=== PATIENT | male | born 1965 | race Caucasian/White ===

== ENCOUNTER 2021-01-01 15:19 | Inpatient (IN) | payer MEDICAID, OTHER ==
[~2021-01-01] VITALS: Ht 182.9 cm; Wt 105.0 kg
[~2021-01-01 15:19] MED LIST: HYDR12.55 PO; PRED10TA PO; VALS160T2 PO
[2021-01-01 15:59] LABS: CLARITY,URINE CLOUDY (Clear); COLOR,URINE YELLOW (Yellow); GLUCOSE, URINE NEGATIVE (Neg); KETONES,URINE TRACE mg/dl (Neg); LEUKOCYTE ESTERASE ,URINE TRACE (Neg); NITRITES, URINE NEGATIVE (Neg); OCCULT BLOOD,URINE MODERATE (Neg); PROTEIN,URINE 100 mg/dl (Neg); UROBILINOGEN,URINE 0.2 E.U/dL (0.2-1.0)
[2021-01-01 16:01] LABS: UA COLLECTION TYPE CLN CATCH MIDSTREAM
[2021-01-01 16:16] LABS: MUCUS STRANDS FEW /LPF (Neg); TRANSITIONAL EPI CELLS,URINE MODERATE /HPF
[2021-01-01 16:17] LABS: BACTERIA,URINE 2+ /HPF (Neg); SQUAMOUS EPITHELIAL CELL,UR FEW /LPF (FEW)
[2021-01-01] MEDS ORDERED: ketorolac tromethamine 15mg/ml inj. IV ONE (17:45)
[2021-01-01] MEDS ORDERED: normal saline 1000ML IV soln IVB ONE (17:45)
[2021-01-01] MEDS ORDERED: proCHLORperazine 10 MG/2 ml inj IV ONE (17:55)
[2021-01-01 18:48] LABS: ALANINE AMINOTRANSFERASE 38 U/L (12-78); ALBUMIN 3.2 G/DL (3.4-5.0); ALBUMIN/GLOBULIN RATIO 0.7 (1.1-1.5); ALKALINE PHOSPHATASE 76 IU/L (46-116); ANION GAP 12 (8-16); ASPARTATE AMINO TRANSFERASE 15 U/L (10-37); BILIRUBIN,TOTAL 0.9 MG/DL (0.1-1.0); BLOOD UREA NITROGEN 42 MG/DL (7-18); BUN/CREATININE RATIO 15.4 (5.4-32.0); CALCIUM 9.5 MG/DL (8.5-10.1); CHLORIDE 92 MMOL/L (99-107); CREATININE 2.73 MG/DL (0.60-1.10); GLUCOSE 143 MG/DL (70-104); POTASSIUM 3.4 MMOL/L (3.5-5.1); SODIUM 132 MMOL/L (135-145); TOTAL CARBON DIOXIDE 28.1 MMOL/L (24-32); TOTAL PROTEIN 8.1 G/DL (6.4-8.2); eGFR 24 ML/MIN
[2021-01-01 19:44] LABS: BASOPHILS % (AUTO) 0.1 % (0-1); EOSINOPHILS # (AUTO) 0.1 X10'3 (0-0.9); EOSINOPHILS % (AUTO) 0.5 % (0-6); HEMOGLOBIN 13.2 g/dl (14.0-17.9); LYMPHOCYTES # (AUTO) 1.1 X10'3 (1.1-4.8); LYMPHOCYTES % (AUTO) 7.8 % (21-51); MEAN CORPUSCULAR HEMOGLOBIN 28.8 PG (27.0-31.0); MEAN CORPUSCULAR HGB CONC 33.8 g/dL (33.0-36.5); MEAN CORPUSCULAR VOLUME 85.1 FL (78-98); MEAN PLATELET VOLUME 8.9 FL (7.4-10.4); MONOCYTES # (AUTO) 1.3 X10'3 (0-0.9); MONOCYTES % (AUTO) 9.4 % (2-12); NEUTROPHILS # (AUTO) 11.2 X10'3 (1.8-7.7); NEUTROPHILS % (AUTO) 82.2 % (42-75); PLATELET COUNT 199 X10'3 (140-440); RED BLOOD COUNT 4.58 X10'6 (4.70-6.10); RED CELL DISTRIBUTION WIDTH 13.2 % (11.5-14.5); WHITE BLOOD COUNT 13.6 X10'3 (4.5-11.0)
[2021-01-01] MEDS ORDERED: OLME-11 PO (20:01)
[2021-01-01] MEDS ORDERED: TADA20TA43 PO (20:01)
[2021-01-01] MEDS ORDERED: PANT40TA54 PO (20:01)
[2021-01-01] MEDS ORDERED: ROSU20TA31 PO (20:01)
[2021-01-01] MEDS ORDERED: AMLO5TAB16 PO (20:01)
[2021-01-01] MEDS ORDERED: HYDR12.55 PO (20:03)
[2021-01-01] MEDS ORDERED: diatr meglu/diatrizoate 30ml oral sol.-(3 dose) bottle PO SCH (21:00)
--- NOTE | 2021-01-01 21:49 | NUR ---
MD Torres at bedside. instructed to have patient become NPO at midnight.
[2021-01-01] MEDS: diatr meglu/diatrizoate 30ml oral sol.-(3 dose) bottle PO SCH (22:30)
[2021-01-01] MEDS ORDERED: morphine 2 MG/ML inj. syringe IV PRN (23:30)
[2021-01-01] MEDS ORDERED: mag hydrox/Alum hydrox/simeth 30ml oral suspension PO PRN (23:30)
[2021-01-01] MEDS ORDERED: magnesium hydroxide 30ml (MOM) UD suspension PO PRN (23:30)
[2021-01-01] MEDS ORDERED: potassium Cl 20 mEq SR tablet PO PRN ×2 (23:30)
[2021-01-01] MEDS ORDERED: potassium Cl 40MEQ/1/2NS 520ml 520 ML IV PRN ×2 (23:30)
[2021-01-02] VITALS (15 sets, daily range): BP systolic 117–177; BP diastolic 79–104
[2021-01-02] MEDS: CefTRIAXone/D5W-Rocephin 1gm 50 ML IV SCH (01:12)
[2021-01-02] MEDS: normal saline 1000ml 1,000 ML IV SCH ×3 (01:12→22:49)
--- NOTE | 2021-01-02 01:19 | NUR ---
Pt asleep with observed chest rise and fall.
--- NOTE | 2021-01-02 02:40 | NUR ---
Called to get report on patient; ER teletypesetter stated that primary RN is at lunch and will call back.
[2021-01-02 02:46] LABS: BASOPHILS % (AUTO) 0.3 % (0-1); EOSINOPHILS # (AUTO) 0.3 X10'3 (0-0.9); EOSINOPHILS % (AUTO) 2.2 % (0-6); HEMATOCRIT 37.9 % (42.0-52.0); HEMOGLOBIN 12.9 g/dl (14.0-17.9); LYMPHOCYTES # (AUTO) 1.3 X10'3 (1.1-4.8); LYMPHOCYTES % (AUTO) 10.7 % (21-51); MEAN CORPUSCULAR VOLUME 85.4 FL (78-98); MEAN PLATELET VOLUME 8.3 FL (7.4-10.4); MONOCYTES # (AUTO) 1.1 X10'3 (0-0.9); MONOCYTES % (AUTO) 9.5 % (2-12); NEUTROPHILS # (AUTO) 9.1 X10'3 (1.8-7.7); NEUTROPHILS % (AUTO) 77.3 % (42-75); PLATELET COUNT 222 X10'3 (140-440); RED BLOOD COUNT 4.44 X10'6 (4.70-6.10); RED CELL DISTRIBUTION WIDTH 13.1 % (11.5-14.5); WHITE BLOOD COUNT 11.8 X10'3 (4.5-11.0)
[2021-01-02 03:02] LABS: ALANINE AMINOTRANSFERASE 34 U/L (12-78); ALBUMIN 2.6 G/DL (3.4-5.0); ALBUMIN/GLOBULIN RATIO 0.6 (1.1-1.5); ALKALINE PHOSPHATASE 71 IU/L (46-116); ANION GAP 10 (8-16); ASPARTATE AMINO TRANSFERASE 14 U/L (10-37); BILIRUBIN,TOTAL 0.6 MG/DL (0.1-1.0); BLOOD UREA NITROGEN 41 MG/DL (7-18); BUN/CREATININE RATIO 19.3 (5.4-32.0); CALCIUM 8.9 MG/DL (8.5-10.1); CHLORIDE 96 MMOL/L (99-107); CREATININE 2.12 MG/DL (0.60-1.10); GLUCOSE 152 MG/DL (70-104); POTASSIUM 3.3 MMOL/L (3.5-5.1); SODIUM 135 MMOL/L (135-145); TOTAL CARBON DIOXIDE 28.7 MMOL/L (24-32); eGFR 32 ML/MIN
--- NOTE | 2021-01-02 03:18 | NUR ---
Received report from BERNADETTE Nieto. Awaiting patient arrival to the unit.
[2021-01-02] MEDS: ondansetron/PF 4mg/2ml inj IV PRN (03:47)
[2021-01-02] MEDS: morphine 2 MG/ML inj. syringe IV PRN ×2 (03:48→09:12)
--- NOTE | 2021-01-02 03:55 | NUR ---
Patient came up to the floor via wheelchair accompanied by PCT. Placed in 344A. Patient awake and alert on room air, in no apparent distress. Call light given, items of frequent use within reach. Will continue to monitor.
--- NOTE | 2021-01-02 04:15 | NUR ---
Patient stated "I was raised [place], but I'm ok to get blood if that's the last and only option"
--- NOTE | 2021-01-02 06:24 | NUR ---
Patient in room [facility]. I have received report from Dinah FLEMING and had the opportunity to ask questions and assume patient care.
--- NOTE | 2021-01-02 06:25 | NUR ---
Problems reprioritized. Patient report given, questions answered & plan of care reviewed with BERNADETTE Persaud.
[2021-01-02] MEDS: diatr meglu/diatrizoate 30ml oral sol.-(3 dose) bottle PO SCH ×2 (07:25→09:07)
[2021-01-02] MEDS: atorvastatin 10mg tablet PO SCH (08:00)
[2021-01-02] MEDS: K and/or MAG REPLACEMENT MC SCH ×2 (08:00→22:50)
[2021-01-02] MEDS: amLODIPine 5mg tablet PO SCH (08:00)
[2021-01-02] MEDS: pantoprazole 40mg Tablet.DR PO SCH (08:00)
--- NOTE | 2021-01-02 08:40 | NUR ---
OR phoned that pt will be going to surgery after 1600, and pt is to be NPO after breakfast. Addendum: 01/02/21 at 0848 by Uzma Cole RN BERNADETTE Persaud notified.
[2021-01-02] MEDS ORDERED: morphine 2 MG/ML inj. syringe IV ONE (12:30)
[2021-01-02] MEDS ORDERED: famotidine/PF 10 mg/ml inj IV ONE (14:00)
--- NOTE | 2021-01-02 14:20 | NUR ---
Paged Dr. Chao PAGER ID: [phone] MESSAGE: Surgical Cori FLEMING ext [phone]. RE: Jona Maradiaga. 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 I do not see any documentation that says he has history of inferior infarct. I also called OR charge nurse Brian to let him know about the abnormal EKG to relay to anesthesiologist
--- NOTE | 2021-01-02 14:23 | NUR ---
I called pharmacy to request IV KCL for K of 3.3 Addendum: 01/02/21 at 1424 by Cori Hawley RN Patient currently on NPO
[2021-01-02] MEDS ORDERED: iohexol 300 MG/1 ML 50ml polymer ONE (18:33)
--- NOTE | 2021-01-02 18:39 | NUR ---
Problems reprioritized. Patient report given, questions answered & plan of care reviewed with Pat RN.
[2021-01-02] MEDS ORDERED: sevoflurane 250ml liquid IH ONE (18:40)
[2021-01-02] MEDS ORDERED: fentaNYL/PF 50MCG/1 ML 2ML syringe ONE ×2 (18:47→19:32)
[2021-01-02] MEDS ORDERED: midazolam 1 mg/ML 2ml injection ONE (18:47)
[2021-01-02] MEDS ORDERED: morphine 4 MG/ML inj SYRINge IV PRN (19:20)
[2021-01-02] MEDS ORDERED: meperidine/PF 25mg/ml syringe IV PRN ×3 (19:20)
[2021-01-02] MEDS ORDERED: ringers solution, lacted 1,000 ML IV SCH (19:20)
[2021-01-02] MEDS ORDERED: morphine 2 MG/ML inj. syringe IV PRN (19:20)
[2021-01-02] MEDS ORDERED: proCHLORperazine 10 MG/2 ml inj IV PRN (19:20)
[2021-01-02] MEDS ORDERED: ondansetron/PF 4mg/2ml inj IV PRN (19:20)
[2021-01-02] MEDS ORDERED: LIDOcaine 1%/PF 5ML 10 MG/ML VIAL ONE (19:31)
[2021-01-02] MEDS ORDERED: propofol inj 20 ML IV ONE (19:31)
--- NOTE | 2021-01-02 20:05 | NUR ---
RECEIVED PT FROM OR VIA BED, DR SAWANT FROM ANESTHESIA ACCOMPANIED-REPORT GIVEN, VSS, PT DENIES PAIN, AWAKE, PIV 20G TO RIGHT HAND-LR RUNNING AT 125ML/HR
[2021-01-02] MEDS ORDERED: PEG 3350/Na sulf,bicarb,Cl/KCl oral sol 4 liter bottle PO ONE (20:40)
--- NOTE | 2021-01-02 21:05 | NUR ---
PT UP TO SIDE OF BED OFTEN TO ATTEMPT TO VOID-SMALL AMOUNTS OF RED URINE-OUT, ONE CLOT NOTED WELL, PT DENIES PAIN, VSS-BP ELEVATED, PT HAS NOT HAD BP MEDS FOR LAST FEW DAYS, PIV 20G TO RIGHT HAND-LR STILL RUNNING, PLAN TO BE ON CLEAR LIQUID DIET AND GO LYTELY FOR PLANNED COLOSCOPY IN AM-COLECTOMY ON HOLD, REPORT CALLED TO BREANN ON SURGICAL-ALL QUESTIONS ANSWERED, PT RTN TO ROOM 344A, PRIMARY RN IN ROOM TO RECEIVE-ALL QUESTIONS ANSWERED, BED LOW AND LOCKED, CALL LIGHT IN REACH.
--- NOTE | 2021-01-02 21:15 | NUR ---
s/p cysto with stent placed Addendum: 01/03/21 at 0316 by Kacie Conway RN Amended: Links added.
[2021-01-03] VITALS (12 sets, daily range): BP systolic 121–189; BP diastolic 67–101
[2021-01-03] MEDS: morphine 2 MG/ML inj. syringe IV PRN ×3 (00:05→19:24)
[2021-01-03] MEDS: CefTRIAXone/D5W-Rocephin 1gm 50 ML IV SCH (07:00)
[2021-01-03 07:04] LABS: ALANINE AMINOTRANSFERASE 50 U/L (12-78); ALBUMIN 2.7 G/DL (3.4-5.0); ALBUMIN/GLOBULIN RATIO 0.6 (1.1-1.5); ALKALINE PHOSPHATASE 107 IU/L (46-116); ANION GAP 12 (8-16); ASPARTATE AMINO TRANSFERASE 36 U/L (10-37); BILIRUBIN,TOTAL 0.5 MG/DL (0.1-1.0); BLOOD UREA NITROGEN 26 MG/DL (7-18); BUN/CREATININE RATIO 18.1 (5.4-32.0); CALCIUM 8.9 MG/DL (8.5-10.1); CHLORIDE 100 MMOL/L (99-107); CREATININE 1.44 MG/DL (0.60-1.10); GLUCOSE 155 MG/DL (70-104); POTASSIUM 4.1 MMOL/L (3.5-5.1); SODIUM 137 MMOL/L (135-145); TOTAL CARBON DIOXIDE 24.9 MMOL/L (24-32); TOTAL PROTEIN 7.6 G/DL (6.4-8.2); eGFR 51 ML/MIN
[2021-01-03] MEDS: pantoprazole 40mg Tablet.DR PO SCH (08:00)
[2021-01-03] MEDS: K and/or MAG REPLACEMENT MC SCH ×2 (08:00→19:39)
[2021-01-03] MEDS: atorvastatin 10mg tablet PO SCH (08:00)
[2021-01-03] MEDS: amLODIPine 5mg tablet PO SCH (08:00)
[2021-01-03] MEDS: hydrALAZINE 20mg/ml inj. IV PRN ×2 (08:09→23:45)
[2021-01-03] MEDS: normal saline 1000ml 1,000 ML IV SCH ×2 (08:28→17:30)
--- NOTE | 2021-01-03 08:55 | NUR ---
linked med note: Rocephin IV due @ 01/03 @ 0100 and Morphine reassessment due @ 01/03 @ 0105 was non administered because this was not my shift.
[2021-01-03 09:50] LABS: BASOPHILS % (AUTO) 0.1 % (0-1); EOSINOPHILS % (AUTO) 0.1 % (0-6)
[2021-01-03 09:54] LABS: LYMPHOCYTES # (AUTO) 1.1 X10'3 (1.1-4.8); LYMPHOCYTES % (AUTO) 6.5 % (21-51); MONOCYTES # (AUTO) 1.2 X10'3 (0-0.9); NEUTROPHILS # (AUTO) 14.8 X10'3 (1.8-7.7); NEUTROPHILS % (AUTO) 86.3 % (42-75)
[2021-01-03 10:07] LABS: HEMOGLOBIN 12.2 g/dl (14.0-17.9); RED BLOOD COUNT 4.28 X10'6 (4.70-6.10); WHITE BLOOD COUNT 16.2 X10'3 (4.5-11.0)
[2021-01-03 10:08] LABS: HEMATOCRIT 36.5 % (42.0-52.0); MEAN CORPUSCULAR HEMOGLOBIN 28.6 PG (27.0-31.0); MEAN CORPUSCULAR HGB CONC 33.6 g/dL (33.0-36.5); MEAN CORPUSCULAR VOLUME 85.2 FL (78-98); MEAN PLATELET VOLUME 7.8 FL (7.4-10.4); PLATELET COUNT 264 X10'3 (140-440); RED CELL DISTRIBUTION WIDTH 13.7 % (11.5-14.5)
--- NOTE | 2021-01-03 10:22 | NUR ---
Page sent to GI lab... Agnes Maradiaga 352A: estimated time for this patients procedure? thanks!
--- NOTE | 2021-01-03 13:17 | NUR ---
taken to GI lab.
[2021-01-03] MEDS ORDERED: fentaNYL/PF 50MCG/1 ML 2ML syringe ONE (13:24)
[2021-01-03] MEDS ORDERED: MIDAZolam 1 MG/ML 5ML VIAL ONE (13:25)
[2021-01-03] MEDS ORDERED: LIDOcaine Viscous 15ml cup ONE (13:49)
[2021-01-03] MEDS ORDERED: BUPIVACAINE liposomal/PF 13.3 MG/ML vial IM ONE ×2 (14:40)
[2021-01-03] MEDS ORDERED: BUPIVAcaine/PF 2.5 mg/ml (0.25%) 30ml vial IJ ONE ×2 (14:45)
--- NOTE | 2021-01-03 18:00 | NUR ---
Problems reprioritized. Patient report given, questions answered & plan of care reviewed with BERNADETTE Birch.
--- NOTE | 2021-01-03 18:05 | NUR ---
Patient in room [facility] 352. I have received report from Roberta FLEMING and had the opportunity to ask questions and assume patient care.
[2021-01-03] MEDS: lactobacillus rhamnosus 10,000 MMU CELLS/CAPSULE PO SCH (19:24)
[2021-01-03] MEDS: diatr meglu/diatrizoate 30ml oral sol.-(3 dose) bottle PO SCH (21:09)
[2021-01-04] MEDS: normal saline 1000ml 1,000 ML IV SCH ×3 (00:42→21:30)
[2021-01-04 00:45] VITALS: BP 154/94
[2021-01-04] MEDS: CefTRIAXone/D5W-Rocephin 1gm 50 ML IV SCH (00:47)
--- NOTE | 2021-01-04 06:08 | NUR ---
Problems reprioritized. Patient report given, questions answered & plan of care reviewed with Roberta FLEMING.
[2021-01-04 06:44] LABS: ALANINE AMINOTRANSFERASE 100 U/L (12-78); ALBUMIN 2.3 G/DL (3.4-5.0); ALBUMIN/GLOBULIN RATIO 0.6 (1.1-1.5); ALKALINE PHOSPHATASE 113 IU/L (46-116); ANION GAP 9 (8-16); ASPARTATE AMINO TRANSFERASE 87 U/L (10-37); BILIRUBIN,TOTAL 0.2 MG/DL (0.1-1.0); BLOOD UREA NITROGEN 32 MG/DL (7-18); BUN/CREATININE RATIO 26.2 (5.4-32.0); CALCIUM 8.6 MG/DL (8.5-10.1); CHLORIDE 106 MMOL/L (99-107); CREATININE 1.22 MG/DL (0.60-1.10); GLUCOSE 126 MG/DL (70-104); SODIUM 141 MMOL/L (135-145); TOTAL CARBON DIOXIDE 26.2 MMOL/L (24-32); TOTAL PROTEIN 6.4 G/DL (6.4-8.2); eGFR 61 ML/MIN
[2021-01-04 07:20] VITALS: BP 169/94
[2021-01-04] MEDS: diatr meglu/diatrizoate 30ml oral sol.-(3 dose) bottle PO SCH ×2 (07:25→19:05)
[2021-01-04] MEDS: morphine 2 MG/ML inj. syringe IV PRN ×2 (07:26→12:26)
[2021-01-04] MEDS: K and/or MAG REPLACEMENT MC SCH ×2 (07:35→20:00)
[2021-01-04] MEDS: lactobacillus rhamnosus 10,000 MMU CELLS/CAPSULE PO SCH ×2 (08:00→19:21)
[2021-01-04] MEDS: atorvastatin 10mg tablet PO SCH (08:00)
[2021-01-04] MEDS: pantoprazole 40mg Tablet.DR PO SCH (08:00)
[2021-01-04] MEDS: amLODIPine 5mg tablet PO SCH (08:00)
[2021-01-04 08:18] LABS: BASOPHILS % (AUTO) 0.1 % (0-1); EOSINOPHILS # (AUTO) 0.1 X10'3 (0-0.9); MEAN CORPUSCULAR HGB CONC 32.9 g/dL (33.0-36.5); MONOCYTES # (AUTO) 1.7 X10'3 (0-0.9)
[2021-01-04 08:19] LABS: EOSINOPHILS % (AUTO) 0.5 % (0-6); HEMATOCRIT 39.5 % (42.0-52.0); LYMPHOCYTES % (AUTO) 11.8 % (21-51); MEAN CORPUSCULAR HEMOGLOBIN 28.4 PG (27.0-31.0); MEAN CORPUSCULAR VOLUME 86.3 FL (78-98); MEAN PLATELET VOLUME 8.3 FL (7.4-10.4); MONOCYTES % (AUTO) 10.3 % (2-12); NEUTROPHILS # (AUTO) 12.9 X10'3 (1.8-7.7); NEUTROPHILS % (AUTO) 77.3 % (42-75); RED BLOOD COUNT 4.58 X10'6 (4.70-6.10)
[2021-01-04 08:31] LABS: PLATELET COUNT 271 X10'3 (140-440); WHITE BLOOD COUNT 17.3 X10'3 (4.5-11.0)
[2021-01-04] MEDS ORDERED: iohexol 300mg/ml 100ml inj. ONE (10:24)
[2021-01-04 11:00] VITALS: BP 167/95
[2021-01-04] MEDS ORDERED: cloNIDine 0.1 mg tablet PO PRN (11:00)
[2021-01-04] MEDS: lisinopril 10 MG tablet PO SCH (11:00)
--- NOTE | 2021-01-04 12:00 | NUR ---
[facility] was unable to get a hold of . I attempted to call him again, no answer. voice message left.
--- NOTE | 2021-01-04 12:45 | NUR ---
PAGER ID: [phone] MESSAGE: Agnes Maradiaga: patient needs results branden. he is trying to eat and drink fluids. starting to get very agitated. thanks, georgina
--- NOTE | 2021-01-04 16:04 | NUR ---
PAGER ID: [phone] MESSAGE: Agnes Maradiaga 352: patient states morphine is not working. would you like to try dilaudid? thanks, georgina
[2021-01-04] MEDS ORDERED: HYDROmorphone inj. 0.5 MG/0.5 ML DISP.SYRIN IV ONE (16:10)
[2021-01-04] MEDS: ondansetron/PF 4mg/2ml inj IV PRN (17:28)
[2021-01-04 18:00] VITALS: BP 175/97
--- NOTE | 2021-01-04 18:10 | NUR ---
Patient in room [facility] 352. I have received report from Roberta FLEMING and had the opportunity to ask questions and assume patient care.
--- NOTE | 2021-01-04 18:11 | NUR ---
Problems reprioritized. Patient report given, questions answered & plan of care reviewed with BERNADETTE Birch.
[2021-01-04] MEDS: metoprolol tartrate 25mg tablet PO SCH (19:22)
[2021-01-04] MEDS: metroNIDAZOLE-Flagyl 500mg/NS 100 ML IV SCH (23:25)
[2021-01-04 23:49] VITALS: BP 148/83
[2021-01-05] VITALS (8 sets, daily range): BP systolic 118–159; BP diastolic 72–88
[2021-01-05] MEDS: CefTRIAXone/D5W-Rocephin 1gm 50 ML IV SCH (01:13)
--- NOTE | 2021-01-05 06:10 | NUR ---
Problems reprioritized. Patient report given, questions answered & plan of care reviewed with Joi FLEMING.
[2021-01-05 06:35] LABS: HEMATOCRIT 36.6 % (42.0-52.0); HEMOGLOBIN 11.9 g/dl (14.0-17.9); MEAN CORPUSCULAR HEMOGLOBIN 27.9 PG (27.0-31.0); MEAN CORPUSCULAR HGB CONC 32.4 g/dL (33.0-36.5); MEAN CORPUSCULAR VOLUME 86.2 FL (78-98); RED BLOOD COUNT 4.25 X10'6 (4.70-6.10); RED CELL DISTRIBUTION WIDTH 13.9 % (11.5-14.5)
[2021-01-05 06:47] LABS: PLATELET COUNT 277 X10'3 (140-440); WHITE BLOOD COUNT 19.3 X10'3 (4.5-11.0)
[2021-01-05 07:16] LABS: PLATELET ESTIMATE NORMAL; TOTAL CELLS COUNTED 100
[2021-01-05 07:19] LABS: ALANINE AMINOTRANSFERASE 96 U/L (12-78); ALBUMIN 2.3 G/DL (3.4-5.0); ALBUMIN/GLOBULIN RATIO 0.6 (1.1-1.5); ALKALINE PHOSPHATASE 102 IU/L (46-116); ANION GAP 13 (8-16); ASPARTATE AMINO TRANSFERASE 48 U/L (10-37); BILIRUBIN,TOTAL 0.4 MG/DL (0.1-1.0); BLOOD UREA NITROGEN 20 MG/DL (7-18); BUN/CREATININE RATIO 17.5 (5.4-32.0); CALCIUM 8.2 MG/DL (8.5-10.1); CHLORIDE 103 MMOL/L (99-107); CREATININE 1.14 MG/DL (0.60-1.10); GLUCOSE 107 MG/DL (70-104); SODIUM 139 MMOL/L (135-145); TOTAL PROTEIN 6.1 G/DL (6.4-8.2); eGFR 66 ML/MIN
[2021-01-05] MEDS: normal saline 1000ml 1,000 ML IV SCH ×3 (07:30→18:44)
[2021-01-05] MEDS: K and/or MAG REPLACEMENT MC SCH ×2 (08:00→20:00)
[2021-01-05] MEDS ORDERED: acetaminophen 325mg tablet PO PRN (08:40)
[2021-01-05] MEDS: lactobacillus rhamnosus 10,000 MMU CELLS/CAPSULE PO SCH ×2 (08:56→20:02)
[2021-01-05] MEDS: metroNIDAZOLE-Flagyl 500mg/NS 100 ML IV SCH ×2 (08:56→15:58)
[2021-01-05] MEDS: pantoprazole 40mg Tablet.DR PO SCH (08:56)
[2021-01-05] MEDS: metoprolol tartrate 25mg tablet PO SCH ×2 (08:57→20:01)
[2021-01-05] MEDS: lisinopril 10 MG tablet PO SCH (08:57)
[2021-01-05] MEDS: amLODIPine 5mg tablet PO SCH (08:57)
[2021-01-05] MEDS: atorvastatin 10mg tablet PO SCH (08:57)
[2021-01-05] MEDS: acetaminophen 325mg tablet PO PRN ×2 (08:59→16:03)
--- NOTE | 2021-01-05 10:36 | NUR ---
Initial: Pt admit for cecum mass with a kidney stone and associated right hydronephrosis. Pt s/p cystoscopy as well as biopsy of the right ureter with stone extraction 01/02. Pt s/p colonoscopy which showed no signs of any mass per MD note. 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 Pt pending to go to OR today per MD note. Pt with active regular diet though has been documented as NPO d/t procedures. Pt with c/o hunger and wants to eat per MD note. LBM 01/05. Will continue to follow closely and make recommendations as appropriate pending diet advancement. Recommendations: 1) Advance to regular diet as medically indicated 2) Bowel care per rx 3) Weekly scaled weights Addendum: 01/05/21 at [address] Amended: Links added.
[2021-01-05] MEDS ORDERED: fentaNYL/PF 50MCG/1 ML 2ML syringe ONE (12:05)
[2021-01-05] MEDS ORDERED: midazolam 1 mg/ML 2ml injection ONE (12:05)
[2021-01-05] MEDS: morphine 2 MG/ML inj. syringe IV PRN ×2 (16:48→20:49)
--- NOTE | 2021-01-05 17:37 | NUR ---
PAGER ID: [phone] MESSAGE: Jona Maradiaga 352 Pt c/o having multiple liquid stools today. He is taking a probiotic but had drank golytely a couple days ago which is when he stated it started. Can pt. have an Imodium order? Joi [id number]
--- NOTE | 2021-01-05 18:31 | NUR ---
Problems reprioritized. Patient report given, questions answered & plan of care reviewed with PAT RN.
--- NOTE | 2021-01-05 19:30 | NUR ---
pt reports he's been going in the toilet earlier today & not straining his urine; pt states it has been easiler to urinate since the stent was placed Addendum: 01/05/21 at 4482 by Kacie Conway RN Amended: Links added.
[2021-01-05] MEDS: piperacillin/tazo 4.5gm/100ml 100 ML IV SCH (19:55)
[2021-01-06 00:45] VITALS: BP 153/80
[2021-01-06] MEDS: morphine 2 MG/ML inj. syringe IV PRN ×6 (00:50→20:53)
[2021-01-06] MEDS: normal saline 1000ml 1,000 ML IV SCH ×2 (05:00→17:16)
[2021-01-06 06:02] LABS: ALANINE AMINOTRANSFERASE 68 U/L (12-78); ALBUMIN 2.1 G/DL (3.4-5.0); ALBUMIN/GLOBULIN RATIO 0.6 (1.1-1.5); ALKALINE PHOSPHATASE 111 IU/L (46-116); ANION GAP 7 (8-16); ASPARTATE AMINO TRANSFERASE 23 U/L (10-37); BILIRUBIN,TOTAL 0.4 MG/DL (0.1-1.0); BLOOD UREA NITROGEN 15 MG/DL (7-18); CHLORIDE 105 MMOL/L (99-107); CREATININE 1.07 MG/DL (0.60-1.10); GLUCOSE 100 MG/DL (70-104); POTASSIUM 3.8 MMOL/L (3.5-5.1); SODIUM 138 MMOL/L (135-145); TOTAL CARBON DIOXIDE 25.8 MMOL/L (24-32); TOTAL PROTEIN 5.9 G/DL (6.4-8.2); eGFR 71 ML/MIN
[2021-01-06 07:00] VITALS: BP 155/99
[2021-01-06 07:55] LABS: BASOPHILS # (AUTO) 0.1 X10'3 (0-0.2); BASOPHILS % (AUTO) 0.3 % (0-1); EOSINOPHILS # (AUTO) 0.4 X10'3 (0-0.9); EOSINOPHILS % (AUTO) 1.8 % (0-6); LYMPHOCYTES # (AUTO) 3.2 X10'3 (1.1-4.8); LYMPHOCYTES % (AUTO) 13.6 % (21-51); MEAN CORPUSCULAR HEMOGLOBIN 28.5 PG (27.0-31.0); MEAN CORPUSCULAR VOLUME 86.2 FL (78-98); MONOCYTES # (AUTO) 2.5 X10'3 (0-0.9); MONOCYTES % (AUTO) 10.8 % (2-12); NEUTROPHILS # (AUTO) 17.3 X10'3 (1.8-7.7); NEUTROPHILS % (AUTO) 73.5 % (42-75)
[2021-01-06 07:57] LABS: HEMATOCRIT 38.2 % (42.0-52.0); HEMOGLOBIN 12.9 g/dl (14.0-17.9); RED BLOOD COUNT 4.48 X10'6 (4.70-6.10); WHITE BLOOD COUNT 20.2 X10'3 (4.5-11.0)
[2021-01-06 07:59] LABS: PLATELET COUNT 289 X10'3 (140-440)
[2021-01-06] MEDS: K and/or MAG REPLACEMENT MC SCH ×2 (08:00→18:27)
[2021-01-06] MEDS: lactobacillus rhamnosus 10,000 MMU CELLS/CAPSULE PO SCH ×2 (08:43→19:05)
[2021-01-06] MEDS: lisinopril 10 MG tablet PO SCH (08:44)
[2021-01-06] MEDS: atorvastatin 10mg tablet PO SCH (08:44)
[2021-01-06] MEDS: amLODIPine 5mg tablet PO SCH (08:45)
[2021-01-06] MEDS: metoprolol tartrate 25mg tablet PO SCH ×2 (08:45→19:06)
[2021-01-06] MEDS: pantoprazole 40mg Tablet.DR PO SCH (08:45)
[2021-01-06] MEDS: piperacillin/tazo 4.5gm/100ml 100 ML IV SCH ×3 (08:48→23:57)
[2021-01-06 12:00] VITALS: BP 173/102
--- NOTE | 2021-01-06 18:15 | NUR ---
PAGER ID: [phone] MESSAGE: Erendira Augustin71 Surg RE: 352 Agnes Maradiaga- Please call patients pain medication going to fall off emar.
--- NOTE | 2021-01-06 18:16 | NUR ---
Problems reprioritized. Patient report given, questions answered & plan of care reviewed with Afua FLEMING.
[2021-01-06 18:30] VITALS: BP 179/101
--- NOTE | 2021-01-06 18:30 | NUR ---
Patient in room [facility] 352. I have received report from MARC and had the opportunity to ask questions and assume patient care.
[2021-01-06 20:32] VITALS: BP 146/90
[2021-01-06 23:00] VITALS: BP 149/85
[2021-01-07 01:00] VITALS: BP 151/82
[2021-01-07] MEDS: morphine 2 MG/ML inj. syringe IV PRN ×6 (01:00→22:49)
[2021-01-07] MEDS: normal saline 1000ml 1,000 ML IV SCH ×2 (03:20→18:47)
--- NOTE | 2021-01-07 06:31 | NUR ---
Student documentation: I have reviewed and agree with all interventions, assessments performed and documented by SARA.
[2021-01-07 07:00] VITALS: BP 165/95
[2021-01-07] MEDS: K and/or MAG REPLACEMENT MC SCH ×2 (08:00→20:00)
[2021-01-07] MEDS: piperacillin/tazo 4.5gm/100ml 100 ML IV SCH ×2 (08:15→15:47)
[2021-01-07] MEDS: pantoprazole 40mg Tablet.DR PO SCH (08:17)
[2021-01-07] MEDS: amLODIPine 5mg tablet PO SCH (08:17)
[2021-01-07] MEDS: atorvastatin 10mg tablet PO SCH (08:18)
[2021-01-07] MEDS: lactobacillus rhamnosus 10,000 MMU CELLS/CAPSULE PO SCH ×2 (08:18→21:19)
[2021-01-07] MEDS: metoprolol tartrate 25mg tablet PO SCH ×2 (08:18→21:20)
[2021-01-07] MEDS: lisinopril 10 MG tablet PO SCH (08:18)
[2021-01-07 10:34] LABS: BASOPHILS # (AUTO) 0.1 X10'3 (0-0.2); BASOPHILS % (AUTO) 0.5 % (0-1); EOSINOPHILS # (AUTO) 0.5 X10'3 (0-0.9); EOSINOPHILS % (AUTO) 2.7 % (0-6); HEMATOCRIT 40.8 % (42.0-52.0); HEMOGLOBIN 13.3 g/dl (14.0-17.9); LYMPHOCYTES # (AUTO) 2.3 X10'3 (1.1-4.8); LYMPHOCYTES % (AUTO) 13.6 % (21-51); MEAN CORPUSCULAR HEMOGLOBIN 27.9 PG (27.0-31.0); MEAN CORPUSCULAR HGB CONC 32.7 g/dL (33.0-36.5); MEAN CORPUSCULAR VOLUME 85.4 FL (78-98); MEAN PLATELET VOLUME 7.8 FL (7.4-10.4); MONOCYTES # (AUTO) 1.5 X10'3 (0-0.9); MONOCYTES % (AUTO) 8.9 % (2-12); NEUTROPHILS # (AUTO) 12.6 X10'3 (1.8-7.7); NEUTROPHILS % (AUTO) 74.3 % (42-75); PLATELET COUNT 364 X10'3 (140-440); RED BLOOD COUNT 4.77 X10'6 (4.70-6.10); RED CELL DISTRIBUTION WIDTH 13.7 % (11.5-14.5)
[2021-01-07 11:00] VITALS: BP 145/51
--- NOTE | 2021-01-07 18:30 | NUR ---
Patient in room [facility] 352. I have received report from SARA and had the opportunity to ask questions and assume patient care.
--- NOTE | 2021-01-07 18:35 | NUR ---
Problems reprioritized. Patient report given, questions answered & plan of care reviewed with Yanelis FLEMING.
[2021-01-07 19:00] VITALS: BP 165/93
[2021-01-07] MEDS: diatr meglu/diatrizoate 30ml oral sol.-(3 dose) bottle PO PRN (21:24)
[2021-01-07 23:00] VITALS: BP 137/100
[2021-01-08] MEDS: piperacillin/tazo 4.5gm/100ml 100 ML IV SCH ×2 (00:15→07:16)
[2021-01-08] MEDS: normal saline 1000ml 1,000 ML IV SCH ×3 (04:13→20:03)
[2021-01-08] MEDS: morphine 2 MG/ML inj. syringe IV PRN ×2 (05:23→11:34)
--- NOTE | 2021-01-08 06:30 | NUR ---
Problems reprioritized. Patient report given, questions answered & plan of care reviewed with
--- NOTE | 2021-01-08 07:00 | NUR ---
Patient in room [facility]. I have received report from Afua FLEMING and had the opportunity to ask questions and assume patient care.
[2021-01-08] MEDS: diatr meglu/diatrizoate 30ml oral sol.-(3 dose) bottle PO PRN ×2 (07:16→10:36)
[2021-01-08] MEDS: pantoprazole 40mg Tablet.DR PO SCH (07:16)
[2021-01-08] MEDS: lactobacillus rhamnosus 10,000 MMU CELLS/CAPSULE PO SCH ×2 (07:16→20:02)
[2021-01-08] MEDS: amLODIPine 5mg tablet PO SCH (07:17)
[2021-01-08] MEDS: lisinopril 10 MG tablet PO SCH (07:18)
[2021-01-08] MEDS: metoprolol tartrate 25mg tablet PO SCH ×2 (07:19→20:02)
[2021-01-08] MEDS: atorvastatin 10mg tablet PO SCH (07:19)
[2021-01-08 08:00] VITALS: BP 155/83
[2021-01-08] MEDS: K and/or MAG REPLACEMENT MC SCH ×2 (08:00→20:00)
[2021-01-08 11:00] VITALS: BP 159/98
--- NOTE | 2021-01-08 13:44 | NUR ---
called Dr. Torres to see if he wanted patient to stay NPO from this mornings CT scan, he verified with me that patient could continue regular diet.
[2021-01-08] MEDS: hydrALAZINE 20mg/ml inj. IV PRN (14:59)
[2021-01-08] MEDS ORDERED: piperacillin/tazo 3.375gm/50ml 50 ML IV SCH (16:00)
[2021-01-08] MEDS: HYDROcodone/acetaminophen 10/325mg tab PO PRN ×2 (16:29→21:11)
[2021-01-08] MEDS: amox tr/potassium clavulanate 875/125mg TAB PO SCH (16:47)
--- NOTE | 2021-01-08 17:10 | NUR ---
Reassessment: Patient's diet has been advanced to regular and pt documented with 100% PO intake of meals. [facility] 01/07. No nutrition intervention implemented at this time. Will continue to follow. Recommendations: 1) Continue regular diet 2) Monitor need for additional protein for satiety 3) Bowel care per rx 4) Weekly scaled weights Addendum: 01/08/21 at [address] Amended: Links added.
--- NOTE | 2021-01-08 17:59 | NUR ---
Problems reprioritized. Patient report given, questions answered & plan of care reviewed with Dinah FLEMING.
--- NOTE | 2021-01-08 18:05 | NUR ---
Patient in room [facility] 352. I have received report from BERNADETTE Ochoa and had the opportunity to ask questions and assume patient care.
[2021-01-08 19:00] VITALS: BP 147/93
[2021-01-09] VITALS: BP 158/76
[2021-01-09] MEDS: HYDROcodone/acetaminophen 10/325mg tab PO PRN ×4 (01:43→14:30)
--- NOTE | 2021-01-09 06:38 | NUR ---
Problems reprioritized. Patient report given, questions answered & plan of care reviewed with BERNADETTE Ochoa.
[2021-01-09] MEDS: amox tr/potassium clavulanate 875/125mg TAB PO SCH (07:20)
[2021-01-09] MEDS: pantoprazole 40mg Tablet.DR PO SCH (07:20)
[2021-01-09] MEDS: amLODIPine 5mg tablet PO SCH (07:21)
[2021-01-09] MEDS: lisinopril 10 MG tablet PO SCH (07:21)
[2021-01-09] MEDS: lactobacillus rhamnosus 10,000 MMU CELLS/CAPSULE PO SCH (07:21)
[2021-01-09] MEDS: atorvastatin 10mg tablet PO SCH (07:21)
[2021-01-09 07:22] VITALS: BP_SYST 103
[2021-01-09] MEDS: metoprolol tartrate 25mg tablet PO SCH (07:22)
[2021-01-09] MEDS: K and/or MAG REPLACEMENT MC SCH (08:00)
[2021-01-09] MEDS ORDERED: LOP25T PO (09:32)
[2021-01-09] MEDS: normal saline 1000ml 1,000 ML IV SCH (10:02)
--- NOTE | 2021-01-10 13:03 | NUR ---
CASE MANAGEMENT DISCHARGE FOLLOW UP: Spoke with pt via telephone. Reports that he is "still here," having abdominal pain "all the time," hematuria; denies CP, SOB, fever/chills. Verbalizes understanding of s/sx requiring further evaluation/emergent assistance. Verbalizes understanding of medications, states that he has his antibiotics but was not sure about metoprolol, educated pt on metoprolol use/purpose, advised that he had been taking the metoprolol during his hospitalization for BP/HR control, he verbalizes understanding. Verbalizes compliance with MD discharge instructions. Verbalizes understanding of the importance in making/keeping follow-up appointments, states his is currently on the other line trying to set up follow up appointment with Dr Torres. Upon inquiry regarding stay at hospital, pt states that one hospitalist "is a complete idiot," that "he came into my room and told me that I have liver cancer and that I am not going to live much longer; he said this in front of my mother," pt states that his mother broke down crying afterwards. Otherwise, pt states no issues during hospitalization. Pt does ask about getting disability, advised he will need to do that through his PCP, he verbalizes understanding. States no further questions/concerns at this time.
== END 2021-01-09 15:48 | disposition home or self-care (01) | DRG 659 ==
LOC: ER 15:19 → ED HOLD 23:28 → SUR 3N 01-02 05:27
PROVIDERS: ADMIT Internal Medicine; ATTEND Family Medicine
PROC: 0TC68ZZ Extirpation of Matter from Right Ureter, Via Natural or Artificial Opening Endoscopic (ICD-10-PCS; 2021-01-02)
PROC: 0TB68ZX Excision of Right Ureter, Via Natural or Artificial Opening Endoscopic, Diagnostic (ICD-10-PCS; 2021-01-02)
PROC: 0T768DZ Dilation of Right Ureter with Intraluminal Device, Via Natural or Artificial Opening Endoscopic (ICD-10-PCS; principal; 2021-01-02 18:40)
PROC: 0DB48ZX Excision of Esophagogastric Junction, Via Natural or Artificial Opening Endoscopic, Diagnostic (ICD-10-PCS; 2021-01-03)
PROC: 0DB68ZX Excision of Stomach, Via Natural or Artificial Opening Endoscopic, Diagnostic (ICD-10-PCS; 2021-01-03)
PROC: 0DJD8ZZ Inspection of Lower Intestinal Tract, Via Natural or Artificial Opening Endoscopic (ICD-10-PCS; 2021-01-03)
PROC: BW211ZZ Computerized Tomography (CT Scan) of Abdomen and Pelvis using Low Osmolar Contrast (ICD-10-PCS; 2021-01-04)
PROC: 0W9G30Z Drainage of Peritoneal Cavity with Drainage Device, Percutaneous Approach (ICD-10-PCS; 2021-01-04)
DX: N13.1 Hydronephrosis with ureteral stricture, not elsewhere classified (principal); K63.1 Perforation of intestine (nontraumatic); K35.33 Acute appendicitis with perforation, localized peritonitis, and gangrene, with abscess; N17.9 Acute kidney failure, unspecified; B96.20 Unspecified Escherichia coli [E. coli] as the cause of diseases classified elsewhere; K21.00 Gastro-esophageal reflux disease with esophagitis, without bleeding; K64.0 First degree hemorrhoids; E78.00 Pure hypercholesterolemia, unspecified; E87.6 Hypokalemia; Z20.822 Contact with and (suspected) exposure to COVID-19; E78.5 Hyperlipidemia, unspecified; K29.70 Gastritis, unspecified, without bleeding; I10 Essential (primary) hypertension; M19.90 Unspecified osteoarthritis, unspecified site; R31.0 Gross hematuria; Z79.899 Other long term (current) drug therapy; Z12.11 Encounter for screening for malignant neoplasm of colon
CPT/HCPCS: 43239; 45378; 49406; 96361; 96374; 96375; 99285; Z7506; Z7508; 36415; 74176; 74177; 74420; 76000; 80053; 81001; 82378; 82948; 85007; 85025; 87070; 87077; 87081; 87088; 87186; 87426; 93005; 99152; 99153; A4618; A4620; C1758; C1769; C2617; G0378; J0360; J0696; J0780; J1170; J1885; J2250; J2270; J2405; J2543; J2704; J3010; J3480; J3490; J7030; J7040; Q9963; Q9967